=== PATIENT | male | born 1945 | race Caucasian/White ===

== ENCOUNTER → 2018-11-09 | Outpatient (CLI) | payer MEDICARE ==
--- NOTE | 2018-11-09 10:01 | CTL ---
EXAMINATION TYPE: CT Low Dose Lung DATE OF EXAM ORDERED: 11/09/2018 HISTORY: Long-term tobacco use. Lung cancer screening CT DLP: 116.[address] CTDI: 3.1 mGy Automated exposure control for dose reduction was used. SCREENING VISIT: Follow up study COMPARISON: Outside CTs 2017 through 2015 TECHNIQUE: Low dose computed tomography scan was performed through the chest at 1 mm thick sections a nd reconstructed images in the coronal plane at [address] DIAGNOSTIC QUALITY: Satisfactory FINDINGS: LUNG NODULES: None. Incidental 2 small calcified nodules are granulomas measuring up to 4 mm in the right middle lobe axi al image 221. LUNGS: COPD: Severity: Mild to moderate Fibrosis: Severity: Mild bibasilar Lymph nodes: Prominent but subcentimeter , for reference right paratracheal lymph node measures 1.5 x 0.6 cm on axial image 112. Other findings: None BILATERAL PLEURAL SPACE: Effusion: None Calcification: None Thickening: None Pneumothorax: None HEART: Heart Size: Normal Coronary calcification: Severe 3 vessel Pericardial effusion: None OTHER FINDINGS: Upper abdomen: Cholecystectomy clips noted. Bony thorax: There is S-shaped scoliosis with moderate multilevel spurring. Supraclavicular region: Heterogeneous partially calcified enlarged right thyroid presumed goiter rede monstrated with substernal extension Other: Ascending aorta measures up to 4.0 cm in diameter axial image 129 similar to prior IMPRESSION: No suspicious nodules or masses. FOLLOW UP CT CHEST RECOMMENDATION: Annual low-dose lung screening CT CT LUNG RAD: Lung-Rad 1S Negative Severe three-vessel coronary artery calcification redemonstration be correlated clinically with addit ional cardiac risk factors.
== END | disposition home or self-care (01) ==
LOC: RADCTMAIN 08:33
PROVIDERS: ATTEND Internal Medicine
DX: Z12.2 Encounter for screening for malignant neoplasm of respiratory organs (principal); Z87.891 Personal history of nicotine dependence

== ENCOUNTER 2018-11-11 07:06 | Day surgery (SDC) | payer MEDICARE ==
[2018-11-09 14:19] VITALS: BMI 23.1
[~2018-11-11 07:06] MED LIST: LACTATED RINGERS 1,000 ML IV SCH
[2018-11-11 07:25] VITALS: RESP 18; TEMP 97.8
[2018-11-11] MEDS ORDERED: LACTATED RINGERS 1,000 ML IV ONE (07:25)
[2018-11-11] MEDS ORDERED: LIDOCAINE 1% 20 ML VIAL (10MG/ML) FOR IV START INTRADERMA ONE (07:25)
[2018-11-11] MEDS ORDERED: PROPOFOL 10 MG/ML 20 ML VIAL IV ONE (08:01)
--- NOTE | 2018-11-11 08:21 | P.PCN ---
Date of Procedure: 11/11/18 Procedure(s) Performed: BRIEF HISTORY: Patient is a 73-year-old pleasant male, scheduled for an elective colonoscopy as a part of evaluation of prior history of colon polyps. Last upper endoscopy was 5 years ago. PROCEDURE PERFORMED: Colonoscopy. PREOPERATIVE DIAGNOSIS: History of colon polyps. IV sedation per Anesthesia. PROCEDURE: After informed consent was obtained, the patient, was brought into the endoscopy unit. IV sedation was administered by Anesthesia under continuous monitoring. Digital rectal examination was normal. Initially the Olympus CF- 160 flexible video colonoscope was then inserted in the rectum, gradually advanced into the cecum without any difficulty. Careful examination was performed as the scope was gradually being withdrawn. Ileocecal valve and the appendiceal orifice were visualized and appeared normal. Prep was excellent. Mucosa of the cecum, ascending colon, transverse colon, descending colon, sigmoid colon, and rectum appeared normal. Retroflexion was performed in the rectum and no lesions were seen. The patient tolerated the procedure well. IMPRESSION: Normal-appearing colon from rectum to cecum with no evidence of colorectal neoplasia . RECOMMENDATIONS: Findings of this examination were discussed with the patient as well as his family. He was advised to have a repeat surveillance colonoscopy in 5 years from now because of prior history of colon polyps.
[2018-11-11 08:41] VITALS: BP 115/72; PULSE 53
== END 2018-11-11 09:08 | disposition home or self-care (01) ==
LOC: ORWHC2ENDO 07:06
PROVIDERS: ATTEND Internal Medicine Gastroenterology
DX: Z12.11 Encounter for screening for malignant neoplasm of colon (principal); I10 Essential (primary) hypertension; N40.0 Benign prostatic hyperplasia without lower urinary tract symptoms; Z79.1 Long term (current) use of non-steroidal anti-inflammatories (NSAID); Z86.010 Personal history of colon polyps; Z88.2 Allergy status to sulfonamides; Z79.899 Other long term (current) drug therapy
CPT/HCPCS: J2704; G0105; 45378

== ENCOUNTER → 2019-12-29 | Outpatient (CLI) | payer MEDICARE ==
--- NOTE | 2019-12-29 11:35 | CTL ---
EXAMINATION TYPE: CT Low Dose Lung DATE OF EXAM ORDERED: 12/29/2019 HISTORY: . Lung cancer screening CT DLP: 66.[address] CTDI: 1.9 mGy Automated exposure control for dose reduction was used. SCREENING VISIT: COMPARISON: TECHNIQUE: Low dose computed tomography scan was performed through the chest at 1 mm thick sections a nd reconstructed images in the coronal plane at [address] DIAGNOSTIC QUALITY: Satisfactory FINDINGS: LUNG NODULES: There is a 2 mm nodule appears to be calcified right upper lobe apex peripherally. Previously noted r ight upper lobe calcified nodule stable. No new pulmonary nodules. LUNGS: Hyperinflation compatible COPD. Changes of basilar and central bronchiectasis. Subpleural nodule righ t lower lobe measuring 2 mm retrospectively stable. Linear subsegmental consolidation most typical of atelectasis. Calcified 2 mm nodule superior segment left lower lobe subpleural. Additional 1 mm nodu le too small to characterize but likely also related to granuloma. Within the right and left lower lobe on image 275 and 274 there is a 1 mm subpleural nodule. PLEURAL SPACE: No pleural fusion. Tiny pleural-based calcification seen posteriorly on image 224. There is evidence of pleural based thickening. No pneumothorax. HEART: Heart Size: Borderline cardiomegaly Coronary calcification: Coronary artery dense calcification noted Pericardial effusion: No sizable pericardial effusion OTHER FINDINGS: Upper abdomen: Suggestion of possible previous cholecystectomy Bony thorax: Hypertrophic and degenerative changes of the spine. Supraclavicular region: Right thyroid is enlarged and there is a calcification likely in the basis burgess pply thyroid nodule. Correlate for thyromegaly. Other: None IMPRESSION: Benign findings. 1. Stable calcified subcentimeter nodules compatible with granuloma. 2. COPD 3. Coronary artery atherosclerotic change 4. Enlargement of the right lobe the thyroid compatible with thyromegaly correlate for calcified thyr oid nodule with ultrasound. FOLLOW UP CT CHEST RECOMMENDATION: Annual follow-up recommended in [address] LUNG RAD: Lung-Rad 2 Benign Appearance or Behavior
== END | disposition home or self-care (01) ==
LOC: RADCTMAIN 10:49
PROVIDERS: ATTEND Family Medicine
DX: Z12.2 Encounter for screening for malignant neoplasm of respiratory organs (principal); J44.9 Chronic obstructive pulmonary disease, unspecified; I25.10 Atherosclerotic heart disease of native coronary artery without angina pectoris; J98.4 Other disorders of lung; R91.1 Solitary pulmonary nodule; Z87.891 Personal history of nicotine dependence

== ENCOUNTER → 2020-12-29 | Outpatient (CLI) | payer MEDICARE ==
--- NOTE | 2020-12-29 09:57 | CTL ---
EXAMINATION TYPE: CT Low Dose Lung DATE OF EXAM ORDERED: 12/29/2020 HISTORY: [facility] tobacco use. Lung cancer screening CT DLP: [address] CTDI: 1.68 mGy Automated exposure control for dose reduction was used. SCREENING VISIT: 3rd after baseline COMPARISON: 2019 studies and older outside studies 2016. TECHNIQUE: Low dose computed tomography scan was performed through the chest at 1 mm thick sections a nd reconstructed images in the coronal plane at [address] DIAGNOSTIC QUALITY: Limited, but interpretable FINDINGS: LUNG NODULES: Present, detailed below: No new or enlarging nodules. Scattered micronodules all measure under 3 mm in size. LUNGS: COPD: Severity: Mild to moderate Fibrosis: Severity: Mild Lymph nodes: None Other findings: None RIGHT PLEURAL SPACE: Effusion: None Calcification: None Thickening: None Pneumothorax: None LEFT PLEURAL SPACE: Effusion: None Calcification: None Thickening: None Pneumothorax: None HEART: Heart Size: Normal Coronary calcification: Severe three-vessel redemonstrated. Pericardial effusion: None OTHER FINDINGS: Upper abdomen: Cholecystectomy clips. Bony thorax: Metallic hardware from left shoulder surgery partially imaged Supraclavicular region: Enlarged right thyroid was substernal extension stable, posterior rim calcifi cation. Possible nodule. This is unchanged from 2016. Left-sided tracheal deviation. Other: None, IMPRESSION: Atxz-to-osyhlatz emphysematous change. Scattered micronodules. No new or enlarging greate r than [address] LUNG RAD AND CT CHEST RECOMMENDATION: Lung-Rad 2 Benign Appearance or Behavior: Continue annual sc reening with LDCT in 12 months. S Modifier (other clinically significant findings): None Nothing new.
== END | disposition home or self-care (01) ==
LOC: RADCTMAIN 09:11
PROVIDERS: ATTEND Family Medicine
DX: Z12.2 Encounter for screening for malignant neoplasm of respiratory organs (principal); J43.9 Emphysema, unspecified; R91.8 Other nonspecific abnormal finding of lung field; Z87.891 Personal history of nicotine dependence
CPT/HCPCS: 71271

== ENCOUNTER → 2021-12-31 | Outpatient (CLI) | payer MEDICARE ==
--- NOTE | 2021-12-31 10:39 | CTL ---
EXAMINATION TYPE: CT Low Dose Lung DATE OF EXAM ORDERED: 12/31/2021 HISTORY: 76-year-old male Z87.891 personal hx tobacco use. Lung cancer screening CT DLP: [address] CTDI: 1.76 mGy Automated exposure control for dose reduction was used. SCREENING VISIT: Annual exam COMPARISON: 12/29/2020 TECHNIQUE: Low dose computed tomography scan was performed through the chest with coronal and sagitta l reconstructions. CT DIAGNOSTIC QUALITY: Satisfactory FINDINGS: Heart normal size without pericardial effusion. Three-vessel coronary artery calcifications are prese nt and is a marker for coronary artery disease. Mild aneurysm ascending aorta 4.1 cm, unchanged. Mild atherosclerotic arch calcifications with conven tional vessel branching anatomy. Marked enlargement of the right lobe of thyroid gland reaching to the level of the sternal notch. The gland measures up to 6.1 cm AP, this may be increased from 5.4 cm, previously. Recommended dedicated thyroid ultrasound evaluation. Otherwise, no thoracic lymphadenopathy by noncontrast, low-dose technique. Strandy atelectasis especially in the mid lungs and posterior lung bases redemonstrated. Some of thes e changes, especially in the lower lobes probably represent scarring. Mild diffuse bronchial wall thickening. Mild emphysematous change. A few scattered 4 mm and smaller p ulmonary nodules are redemonstrated. No new greater than 4 mm pulmonary nodules are identified. Visualized upper abdomen shows cholecystectomy clips and moderate stool. Bones: Old right-sided rib fracture deformities. Moderate degenerative disc disease upper third thora cic spine. Gentle dextroconvex scoliosis upper thoracic thoracic spine. Anterior endplate spondylosis lower thoracic spine. IMPRESSION: 1. COPD with mild emphysema. Strandy scarring and atelectasis mid and lower lungs. Stable few scatter ed 4 mm and smaller pulmonary nodules. Recommend smoking cessation. 2. CAD with 3 vessel coronary artery calcifications. 3. Stable mild aneurysm of the ascending aorta 4.[address] LUNG RAD AND CT CHEST RECOMMENDATION: Lung-Rad 2 Benign Appearance or Behavior: Continue annual sc reening with LDCT in 12 months. S Modifier (other clinically significant findings): S, possible enlarging nodule in the right lobe of thyroid gland. The right lobe measures 6.1 cm AP versus 5.4 cm, previously. Recommend dedicated thyr oid ultrasound to further evaluate.
== END | disposition home or self-care (01) ==
LOC: RADCTMAIN 09:03
PROVIDERS: ATTEND Family Medicine
DX: Z12.2 Encounter for screening for malignant neoplasm of respiratory organs (principal); J43.9 Emphysema, unspecified; R91.8 Other nonspecific abnormal finding of lung field; I25.10 Atherosclerotic heart disease of native coronary artery without angina pectoris; I71.2 Thoracic aortic aneurysm, without rupture; Z87.891 Personal history of nicotine dependence
CPT/HCPCS: 71271

== ENCOUNTER → 2022-01-15 | Outpatient (CLI) | payer MEDICARE ==
--- NOTE | 2022-01-15 15:00 | US ---
EXAMINATION TYPE: US thyroid st tissue head/neck DATE OF EXAM: 01/15/2022 COMPARISON: CT CLINICAL HISTORY: R22.0 Swelling/mass neck. Swelling. GLAND SIZE: Right Lobe: 7.0 x 4.1 x 4.4 cm Overall Parenchyma: heterogenous Left Lobe: 5.1 x 1.4 x 2.5 cm Overall Parenchyma: heterogeneous Isthmus Thickness: 0.8 cm NODULES RIGHT: # of nodules measured on right: 2 1. 5.0 X 4.6 x 4.0 cm, mid-lower mixed cystic and solid, complex nodule, which is wider than tall, with smooth margins, without echogenic foci. Prior size: No prior 2. 1.8 X 1.7 x 2.1 cm, upper mixed cystic and solid, complex isoechoic nodule, which is wider than tall, with smooth margins, without echogenic foci. TR 2 Prior size: No prior LEFT: # of nodules measured on left: 1 Additional subcentimeter anechoic nodule seen. 1. 0.5 X 0.4 x 0.4 cm, lower hypoechoic nodule, which is as wide as it is tall, with smooth margins , without echogenic foci. Prior size: No prior ISTHMUS: # of nodules measured in the isthmus: 1 Seen toward the right lobe. 1. 2.7 X 2.4 x 2.4 cm mixed cystic and solid, complex isoechoic nodule, which is as wide as it is t all, with smooth margins, without echogenic foci. TR 2. Prior size: No prior Bilateral neck scanned, no evidence of lymphadenopathy. IMPRESSION: 1. Thyromegaly 2. Nodules appear benign based thyroid imaging reporting and data system classification. Consider cli nical management. Follow-up could be considered. 2017 ACR TI-RADS LEVEL: TR-RADS 2 - Not Suspicious: No FNA *Highest TI-RADS level nodule reported
== END | disposition home or self-care (01) ==
LOC: RADUSWWP 13:24
PROVIDERS: ATTEND Family Medicine
DX: E04.2 Nontoxic multinodular goiter (principal)
CPT/HCPCS: 76536

== ENCOUNTER → 2023-01-01 | Outpatient (CLI) | payer MEDICARE ==
--- NOTE | 2023-01-01 09:58 | CTL ---
EXAMINATION TYPE: CT Low Dose Lung DATE OF EXAM ORDERED: 01/01/2023 HISTORY: Long-term tobacco use. Lung cancer screening CT DLP: [address] CTDI: 1.84 mGy Automated exposure control for dose reduction was used. SCREENING VISIT: Fourth study after baseline COMPARISON: Prior studies 2021 through 2018 TECHNIQUE: Low dose computed tomography scan was performed through the chest at 1 mm thick sections a nd reconstructed images in multiple planes at 1 mm and [address] DIAGNOSTIC QUALITY: Satisfactory FINDINGS: LUNG NODULES: Present, detailed below: No new or enlarging greater than 5 mm nodules. Scattered micronodules all measure under 3 mm in size. LUNGS: COPD: Severity: Mild Fibrosis: Severity: Mild to moderate linear scarring in the bases Lymph nodes: None Other findings: Stable ascending aortic aneurysm up to 4.1 cm RIGHT PLEURAL SPACE: Effusion: None Calcification: None Thickening: None Pneumothorax: None LEFT PLEURAL SPACE: Effusion: None Calcification: None Thickening: None Pneumothorax: None HEART: Heart Size: Normal Coronary calcification: Severe three-vessel redemonstrated. Pericardial effusion: None OTHER FINDINGS: Upper abdomen: Cholecystectomy clips redemonstrated. Bony thorax: Metallic hardware from left shoulder surgery partially imaged causing streak artifact so mewhat limiting evaluation at this level Supraclavicular region: Enlarged right thyroid was substernal extension stable, posterior rim calcifi ed suspected thyroid nodule. This is unchanged from 2016. Left-sided tracheal deviation is redemonstr ated. Other: None, IMPRESSION: Mild underlying emphysematous change. Stable Scattered micronodules. No new or enlarging greater than 5 mm nodules. Evidence of old granulomatous disease redemonstrated. CT LUNG RAD AND CT CHEST RECOMMENDATION: Lung-Rad 2 Benign Appearance or Behavior: Continue annual sc reening with LDCT in 12 months. S Modifier (other clinically significant findings): S Stable 4.1 cm ascending aortic aneurysm and severe three-vessel coronary artery calcification redemon strated.
== END | disposition home or self-care (01) ==
LOC: RADCTMAIN 08:53
PROVIDERS: ATTEND Family Medicine
DX: Z12.2 Encounter for screening for malignant neoplasm of respiratory organs (principal); J43.9 Emphysema, unspecified; R91.8 Other nonspecific abnormal finding of lung field; Z87.891 Personal history of nicotine dependence
CPT/HCPCS: 71271

== ENCOUNTER → 2024-01-05 | Outpatient (CLI) | payer MEDICARE ==
--- NOTE | 2024-01-05 20:37 | CTL ---
EXAMINATION TYPE: CT Low Dose Lung DATE OF EXAM: 01/05/2024 9:23 AM CLINICAL INDICATION:Male, 78 years old with history of Z87.891 personal hx tobacco use; smoker , hist ory of tobacco use. COMPARISON: None. TECHNIQUE: Multiple axial non-contrast scans were obtained from approximately the lung apices through the upper abdomen. Coronal and sagittal reformatted images were obtained. Low dose technique was uti lized. CT DLP: 122 mGycm, Automated exposure control for dose reduction was used. CT Contrast: Contrast used: None Oral contrast used: None FINDINGS: ======== Lack of intravenous contrast and low dose technique limits the evaluation of the vascular and soft ti ssue structures. LUNGS: No evidence of pulmonary fibrosis. No evidence of focal consolidation, pneumothorax or pleural effusion. No new or enlarging greater than 5 mm nodules. Scattered micronodules all measure under 3 mm in size. Left and right lower lobe linear nodular scarring identified again unchanged. Nodules > 6 mm: RUL: None. RML: None. RLL: None. ADRIENNE: None. LLL: None. AIRWAY: Patent and unremarkable. Slightly compressed and pushed toward the left by large right thyro id substernal goiter. HEART: Size within normal limits. Moderate to severe calcific coronary artery disease and/or coronary artery stents. MEDIASTINUM: No gross evidence of adenopathy. VASCULATURE: No aortic aneurysm. MUSCULOSKELETAL: No acute osseous abnormalities SOFT TISSUES/LYMPH NODES: Unremarkable. LOWER NECK: Goiter. UPPER ABDOMEN: No acute findings. Cholecystectomy clips in the gallbladder fossa. IMPRESSION: 1. No clinically significant pulmonary nodules. CT LUNG RAD AND CT CHEST RECOMMENDATION: BI-RADS 2 S Modifier (other clinically significant findings): S (coronary artery disease). Recommend smoking cessation (if current smoker), or continuation of smoking cessation (if prior smoke r). Annual screening for lung cancer with low-dose computed tomography is recommended in adults ages 55 t o 77 years who have a 30 pack-year smoking history and currently smoke or have quit within the past 1 5 years. Screening should be discontinued once a person has not smoked for 15 years or develops a hea lth problem that substantially limits life expectancy or the ability or willingness to have curative lung surgery. Lung rads 2021 [email or web address]
== END | disposition home or self-care (01) ==
LOC: RADCTMAIN 09:03
PROVIDERS: ATTEND Family Medicine
DX: Z12.2 Encounter for screening for malignant neoplasm of respiratory organs (principal); Z87.891 Personal history of nicotine dependence
CPT/HCPCS: 71271

== ENCOUNTER → 2024-03-26 | Outpatient (CLI) | payer MEDICARE ==
[2024-03-26 12:27] LABS: African American GFR (CKD) >90 (>60 ml/min/1.73 sqM); Blood Urea Nitrogen 19 mg/dL (9-20); Non-African American GFR(CKD) >90 (>60 ml/min/1.73 sqM)
--- NOTE | 2024-03-26 14:01 | CT ---
EXAMINATION TYPE: CT angio chest CT DLP: 665.4 mGycm, Automated exposure control for dose reduction was used. DATE OF EXAM: 03/26/2024 1:04 PM COMPARISON: Chest radiograph from same day. Multiple CTs of the chest with most recent on . CLINICAL INDICATION:Male, 78 years old with history of I71.20 01.08 THORACIC AORTIC ANEURYSM, WITHOUT RUP; aneurysm TECHNIQUE/CONTRAST: CTA scan of the thorax is performed with IV Contrast, patient injected with 100 mL of Isovue 370, MIP images are created and reviewed these are created on a separate workstation.. FINDINGS: Pulmonary Artery: There is no evidence for a filling defect within the pulmonary vasculature to sugge st acute pulmonary embolism. The pulmonary artery is of normal size. Lungs/Pleura: No evidence of focal consolidation, pleural effusion or pneumothorax. Airway: Large airways are patent. Heart: Heart is within normal limits for size. Moderate to severe calcific coronary artery disease. Vasculature: Thoracic ascending aorta diameter is 4.4 cm. Mediastinum: No gross evidence of adenopathy. Musculoskeletal: No acute osseous abnormalities Soft Tissues: Unremarkable. Lower neck: Large goiter.. Upper Abdomen: No significant findings. Cholecystectomy clips in the gallbladder fossa. IMPRESSION: 1. No evidence of pulmonary embolism. 2. Ascending thoracic aorta is ectatic at 4.4 cm. Follow up recommendations for incidental pulmonary nodules, if there are any, are per [employer] or [employer]. [email or web address].org/articles/yeofnrzche-[email or web address]?lang=us
== END | disposition home or self-care (01) ==
LOC: RADCTMAIN 11:44
PROVIDERS: ATTEND Internal Medicine Interventional Cardiology
DX: I77.810 Thoracic aortic ectasia (principal)
CPT/HCPCS: 82565; 84520; 71275; 36415; Q9967

== ENCOUNTER → 2025-04-04 | Outpatient (CLI) | payer MEDICARE ==
[2025-04-04 11:52] LABS: African American GFR (CKD) >90 (>60 ml/min/1.73 sqM); Blood Urea Nitrogen 15 mg/dL (9-20); Non-African American GFR(CKD) 90 (>60 ml/min/1.73 sqM)
--- NOTE | 2025-04-04 15:37 | CT ---
EXAMINATION TYPE: CT angio chest DATE OF EXAM: 04/04/2025 12:47 PM COMPARISON: 03/26/2024 CLINICAL INDICATION: Male, 80 years old with history of I71.20 THORACIC AORTIC ANEURYSM, WITHOUT RUPT URE, UNSPECIFIE; Thoracic aortic aneurysm w/o rupture. TECHNIQUE/CONTRAST: CTA scan of the thorax is performed with IV Contrast, patient injected with 100 ml mL of Isovue 370, MIP images are created and reviewed these are created on a separate workstation.. CT DLP: 735.9 mGycm, Automated exposure control for dose reduction was used. FINDINGS: Lungs/Pleura: No evidence of focal consolidation, pleural effusion or pneumothorax. Mild centrilobula r emphysema changes throughout the lungs. Streaky atelectasis in the medial aspect of the left upper lobe. Airway: Large airways are patent. Heart: Size within normal limits. Moderate coronary artery calcifications present. Thickening and ca lcification of aortic valve present. Vasculature: Ascending thoracic aorta measures within normal limits of 37 mm. No evidence for intramu ral hematoma on noncontrast imaging. No evidence of intimal flap to suggest dissection. No aneurysm i dentified. Scattered atherosclerotic disease. There is no evidence for a filling defect within the pu lmonary vasculature to suggest acute pulmonary embolism. The pulmonary artery is of normal size. Mediastinum: No gross evidence of adenopathy. Musculoskeletal: Moderate disc degeneration changes are present throughout the thoracolumbar spine se condary to osteophyte formation and facet joint arthropathy. Soft Tissues/lymph nodes: Unremarkable. Lower neck: Large nodular goiter of the right thyroid gland extends into the superior mediastinum. Upper Abdomen: The gallbladder is surgically absent. IMPRESSION: 1. Ascending thoracic aorta measures up to 37 mm. This is within normal limits. No evidence for aorti c aneurysm, dissection or occlusion. No evidence for pulmonary embolus in the central pulmonary vascu lature. 2. Mild aortic valve consultations. 3. Moderate coronary artery cusp patient's. 4. Heterogenous enlarged thyroid gland as seen on priors. Follow up recommendations for incidental pulmonary nodules, if there are any, are per [employer] or [employer] [employer]. [email or web address].org/articles/[email or web address]?lang=us [facility], Workstation: [facility], 04/04/2025 3:35 PM
== END | disposition home or self-care (01) ==
LOC: RADCTMAIN 10:55
PROVIDERS: ATTEND Internal Medicine Interventional Cardiology
DX: I71.20 Thoracic aortic aneurysm, without rupture, unspecified (principal); E04.9 Nontoxic goiter, unspecified; I70.0 Atherosclerosis of aorta; Z86.79 Personal history of other diseases of the circulatory system
CPT/HCPCS: 82565; 84520; 71275; 36415; Q9967